=== PATIENT | male | born 1960 | race Caucasian/White ===

== ENCOUNTER 2020-10-03 12:53 | Emergency (ER) | payer MEDICAID, OTHER ==
[~2020-10-03] VITALS: Ht 172.7 cm; Wt 99.8 kg
[~2020-10-03 12:53] MED LIST: FURO20TA4 MT; HYDR12.54 MT; IBUP-1521 MT
[2020-10-03 14:35] LABS: BASOPHILS % 0.6 % (0.0-2.0); EOSINOPHILS % 1.2 % (0.0-5.0); HEMOGLOBIN. 15.9 g/dL (14.0-18.0); LYMPHOCYTES % 22.3 % (20.0-50.0); MEAN CORPUSCULAR HEMOGLOBIN 31.2 pg (28.0-32.0); MEAN CORPUSCULAR VOLUME 90.4 fL (80.0-94.0); MEAN PLATELET VOLUME 9.9 fl (7.4-10.4); MONOCYTES % 8.1 % (2.0-8.0); NEUTROPHILS % 67.8 % (40.0-76.0); PLATELET 161 x1000/uL (130-400); RED BLOOD CELL COUNT 5.09 mill/uL (4.7-6.1); RED CELL DISTRIBUTION WIDTH 13.5 % (11.6-14.6)
[2020-10-03 14:38] LABS: CHLORIDE 105 mEq/L (98-107)
[2020-10-03 14:39] LABS: INR 1.6; PROTHROMBIN TIME 16.7 sec (9.6-11.0)
[2020-10-03] MEDS ORDERED: MORPHINE SULFATE 4 MG/ML CPJ (NOT FOR IM USE) IV ONE (15:00)
[2020-10-03 16:05] LABS: CLARITY URINE CLEAR (CLEAR); COLOR URINE YELLOW (YELLOW); KETONES URINE NEGATIVE (NEGATIVE); LEUKOCYTE ESTERASE URINE 2+ (NEGATIVE); NITRITE URINE NEGATIVE (NEGATIVE); OCCULT BLOOD URINE 1+ (NEGATIVE); PH URINE 6.5 (4.5-8.0); PROTEIN URINE NEGATIVE (NEGATIVE); SPECIFIC GRAVITY URINE 1.018 (1.005-1.030); UROBILINOGEN URINE 0.2 E.U./dL (0.2-1.0)
[2020-10-03] MEDS ORDERED: CEFTRIAXONE 1 G PREMIX 50 ML IV ONE (17:15)
[2020-10-03] MEDS ORDERED: CEPH500C2 MT (18:07)
[2020-10-03 18:15] VITALS: BP 126/88
[2020-10-03] MEDS ORDERED: IOHEXOL-300 100 ML BOTTLE ONE (18:19)
== END 2020-10-03 18:15 | disposition home or self-care (01) ==
LOC: ER 12:53
DX: N39.0 Urinary tract infection, site not specified (principal); E78.00 Pure hypercholesterolemia, unspecified; I10 Essential (primary) hypertension
CPT/HCPCS: 36415; 51702; 74177; 80053; 81003; 85025; 85610; 93005; 96365; 96375; 99285; J0696; J2270; Q9967; Z7610; A4315